=== PATIENT | female | born 1995 | race American Indian/Alaskan Native ===

== ENCOUNTER 2021-06-16 15:14 | Emergency (ER) | payer MEDICAID ==
[2021-06-16 17:30] VITALS: BP 110/69
--- NOTE | 2021-06-16 18:01 | Emergency Department Report ---
ED Eye Problem HPI - General Chief complaint: Eye Problems Stated complaint: RT EYE IRRITATION Source: patient Mode of arrival: Ambulatory Limitations: No Limitations - History of Present Illness Initial comments: Patient is a 25-year-old -[place]ag[place] female with no past medical history who presents to the ED with complaint of acute onset persistent bilateral eye pain with thick purulent discharge for the last 1 week. Patient states that other family members have had similar symptoms. Patient states that she tried to use [id number] medications with no relief. Patient denies vision loss, headache, dizziness, syncope, fever, chills, nausea and vomiting, nasal and sinus congestion, traumatic injury, sore throat, cough or headache. MD chief complaint: eye pain (Bilateral), eye redness (Bilateral), other (Purulent discharge bilaterally) -: Sudden, week(s) (1) Onset Description: sudden, awoke with symptoms Location: both eyes Place: home If Injury: none Eye Symptoms: redness, pain, itching, discharge Severity: moderate Severity scale (0 -10): 4 If Pain, Quality: burning, aching Consistency: constant Context: recent uri Associated Symptoms: none. denies: headache, neck pain, nausea/vomiting, cough Treatments Prior to Arrival: none - Related Data Patient Tetanus UTD: Yes Previous Rx's Medication Instructions Recorded Last Taken Type Gentamicin 0.3% Ophth Soln 1 - 2 drops OP Q4H #5 ml 06/16/21 Unknown Rx ED Review of Systems ROS: Stated complaint: RT EYE IRRITATION Other details as noted in HPI Constitutional: denies: chills, fever Eyes: eye pain (Bilateral eye pain with thick purulent discharge). denies: eye discharge, vision change ENT: denies: ear pain, throat pain Respiratory: denies: cough, shortness of breath, wheezing Cardiovascular: denies: chest pain, palpitations Endocrine: no symptoms reported Gastrointestinal: denies: abdominal pain, nausea, diarrhea Genitourinary: denies: urgency, dysuria, discharge Musculoskeletal: denies: back pain, joint swelling, arthralgia Skin: denies: rash, lesions Neurological: denies: headache, weakness, paresthesias Psychiatric: denies: anxiety, depression Hematological/Lymphatic: denies: easy bleeding, easy bruising ED Past Medical Hx - Medications Home Medications: Home Medications Medication Instructions Recorded Confirmed Last Taken Type Gentamicin 0.3% Ophth Soln 1 - 2 drops OP Q4H #5 ml 06/16/21 Unknown Rx ED Physical Exam - General Limitations: No Limitations General appearance: alert, in no apparent distress - Head Head exam: Present: atraumatic, normocephalic, normal inspection - Eye Eye exam: Present: normal appearance, PERRL, EOMI, other (Bilateral erythematous conjunctive a with thick purulent discharge) Pupils: Present: normal accommodation - ENT ENT exam: Present: normal exam, normal orophraynx, mucous membranes moist, TM's normal bilaterally, normal external ear exam - Neck Neck exam: Present: normal inspection, full ROM - Respiratory Respiratory exam: Present: normal lung sounds bilaterally. Absent: respiratory distress, wheezes, rales, rhonchi, stridor, chest wall tenderness, accessory muscle use, decreased breath sounds, other - Cardiovascular Cardiovascular Exam: Present: regular rate, normal rhythm, normal heart sounds. Absent: systolic murmur, diastolic murmur, rubs, gallop - GI/Abdominal GI/Abdominal exam: Present: soft, normal bowel sounds. Absent: distended, tenderness, guarding, rebound, hyperactive bowel sounds, hypoactive bowel sounds, organomegaly - Extremities Exam Extremities exam: Present: normal inspection, full ROM, normal capillary refill. Absent: tenderness - Back Exam Back exam: Present: normal inspection, full ROM. Absent: tenderness, CVA tenderness (R), CVA tenderness (L), muscle spasm, paraspinal tenderness, vertebral tenderness - Neurological Exam Neurological exam: Present: alert, oriented X3, CN II-XII intact, normal gait, reflexes normal - Psychiatric Psychiatric exam: Present: normal affect, normal mood - Skin Skin exam: Present: warm, dry, intact, normal color. Absent: rash ED Course Vital Signs 06/16/21 17:28 Temperature 98.3 F Pulse Rate 96 H Respiratory 18 Rate Blood Pressure 110/69 [Right] ED Medical Decision Making - Medical Decision Making This is a 25-year-old -Malag[place] female with no past medical history who presents to the ED with complaint of acute onset persistent bilateral eye pain with thick purulent discharge for the last 1 week. Patient states that other family members have had similar symptoms. Patient states that she tried to use [id number] medications with no relief. In the ED, patient is alert and oriented x3 and is not in any distress. Patient will discharge home on medications and advised to follow-up with her primary care physician in 7 to 10 days for reevaluation or return to the ED immediately if symptoms get worse. - Differential Diagnosis Bacterial conjunctivitis; viral conjunctivitis; allergic conjunctivitis Critical care attestation.: If time is entered above; I have spent that time in minutes in the direct care of this critically ill patient, excluding procedure time. ED Disposition Clinical Impression: Bacterial conjunctivitis of both eyes Disposition: HOME / SELF CARE / HOMELESS Is pt being admited?: No Does the pt Need Aspirin: No Condition: Stable Instructions: Bacterial Conjunctivitis, Adult, [id number], Hand Washing, [id number] Additional Instructions: Plan to medication with the affected eye, follow-up with your primary care physician in 7 to 10 days for reevaluation. Return to the ED immediately if symptoms get worse. Prescriptions: Gentamicin 0.3% Ophth Soln 1 - 2 drops OP Q4H #5 ml Referrals: [facility] [Provider Group] - 7-10 days Forms: Work/School Release Form(ED) Time of Disposition: 17:59 Print Language: FAROESE
== END 2021-06-16 18:39 | disposition home or self-care (01) ==
LOC: ED 15:14
DX: H10.33 Unspecified acute conjunctivitis, bilateral (principal)
CPT/HCPCS: 99282